=== PATIENT | female | born 1935 | race Caucasian/White ===

== ENCOUNTER 2017-04-10 12:34 | Emergency (ER) | payer OTHER ==
--- NOTE | ~2017-04-10 | CR132 ---
[facility]. [facility] A Service of [facility] RADIOLOGY TEXT RESULTS PATIENT: NEDRA MARIE LOCATION: SED : 37 UNIT #: [id number] AGE: [address]: Abelino Philippe MD SEX: F ORDER DR: [id number] [address] [address] [id number] E MR#: [id number] Acc #: [id number] NAME: NEDRA MARIE : 1935 SEX: F STUDY DATE/TIME: 04/10/2017 13:27 UNIT: SED ROOM: STUDY DESCRIPTION: CR Forearm 2 View Lt Attending Physician: Abelino Philippe M.D. Ordering Physician: Abelino Philippe M.D. Primary Care Physician: Ashley Sen M.D. MEDICAL IMAGING REPORT This report is preliminary unless electronic signature is present. EXAM Left forearm, 2 views COMPARISON Three views of the left wrist and 2 views of the left humerus on the same date. INDICATIONS 82-year-old female with left forearm pain after falling down the stairs today. FINDINGS There is a mildly comminuted, transverse impacted fracture through the distal radial metaphysis. There is no significant displacement. There appears to be volar convex angulation, which is mild. There is focal soft tissue prominence over the dorsal aspect of the forearm just below the elbow, most consistent with hematoma. No radiopaque foreign body. No evidence of dislocation. IMPRESSION Acute transverse fracture through the distal radial metaphysis with minimal volar convex angulation and impaction. There is mild comminution as well. No dislocation or significant displacement. Dictated by... Paul Amador M.D. THIS IS AN ELECTRONICALLY VERIFIED REPORT Paul Amador M.D. at 04/18/2017 9:09 PM [facility]. [facility] A Service of [facility] RADIOLOGY TEXT RESULTS PATIENT: NEDRA MARIE LOCATION: SED : 37 UNIT #: [id number] AGE: [address]: Abelino Philippe MD SEX: F ORDER DR: TD: 04/10/2017 20:45 JOB #: [id number] MEDICAL IMAGING REPORT Page 1 of 1
--- NOTE | ~2017-04-10 | CR173 ---
[facility] A Service [facility] RADIOLOGY TEXT RESULTS PATIENT: NEDRA MARIE LOCATION: SED : 37 UNIT #: [id number] AGE: [address]: Abelino Philippe MD SEX: F ORDER DR: [id number] [address] [address] [id number] E MR#: [id number] Acc #: [id number] NAME: NEDRA MARIE : 1935 SEX: F STUDY DATE/TIME: 04/10/2017 13:27 UNIT: SED ROOM: STUDY DESCRIPTION: CR Knee 3 Views Rt Attending Physician: Abelino Philippe M.D. Ordering Physician: Abelino Philippe M.D. Primary Care Physician: Ashley Sen M.D. MEDICAL IMAGING REPORT This report is preliminary unless electronic signature is present. REVISED REPORT SEE ADDENDUM EXAM Right knee series dated 04/10/2017. COMPARISON Right knee series dated 09/10/2015. HISTORY Patient fell down the stairs today with right knee pain. FINDINGS Three views of the right knee were obtained. Osteoarthritic changes are noted in the patellofemoral and tibiofemoral joints with prominent spurs and loss of joint space. No obvious joint effusion, acute displaced fracture or dislocation is seen. Subtle calcifications are suspected in the tibiofemoral joint space, suggestive of chondrocalcinosis. Dictated by... Dary Florentino M.D. CPR/psc TD: 04/10/2017 19:58 JOB #: [id number] [facility] A Service [facility] RADIOLOGY TEXT RESULTS PATIENT: NEDRA MARIE LOCATION: SED : 37 UNIT #: [id number] AGE: [address]: Abelino Philippe MD SEX: F ORDER DR: Dictated by..Sharon Florentino M.D. THIS IS AN ELECTRONICALLY VERIFIED REPORT Dary Florentino M.D. at 04/14/2017 3:32 PM CPR/psc TD: 04/11/2017 00:08 JOB #: [id number] CC: [email or web address] Please Delete MEDICAL IMAGING REPORT Page 1 of 1
--- NOTE | ~2017-04-10 | CR172 ---
[facility]. [facility] A Service of [facility] RADIOLOGY TEXT RESULTS PATIENT: NEDRA MARIE LOCATION: SED : 37 UNIT #: [id number] AGE: [address]: Abelino Philippe MD SEX: F ORDER DR: [id number] [address] [address] [id number] E MR#: [id number] Acc #: [id number] NAME: NEDRA MARIE : 1935 SEX: F STUDY DATE/TIME: 04/10/2017 13:27 UNIT: SED ROOM: STUDY DESCRIPTION: CR Knee 3 Views Lt Attending Physician: Abelino Philippe M.D. Ordering Physician: Abelino Philippe M.D. Primary Care Physician: Ashley Sen M.D. MEDICAL IMAGING REPORT This report is preliminary unless electronic signature is present. EXAM Left knee series dated 04/10/2017. COMPARISON Right knee series dated 04/10/2017. HISTORY Patient fell down the stairs today with bilateral knee pain. FINDINGS Three views of the left knee were obtained. Small spur is noted in the anterosuperior aspect of the patella. There is minimal horizontally linear calcification noted within the lateral tibiofemoral joint compartment space suspicious for mild chondrocalcinosis. No acute displaced fracture, dislocation or significant joint effusion. Dictated by... Dary Florentino M.D. THIS IS AN ELECTRONICALLY VERIFIED REPORT Dary Florentino M.D. at 04/11/2017 8:35 PM CPR/psc TD: 04/10/2017 20:02 JOB #: [id number] MEDICAL IMAGING REPORT Page 1 of 1
--- NOTE | ~2017-04-10 | CR156 ---
[facility] A Service of [facility] RADIOLOGY TEXT RESULTS PATIENT: NEDRA MARIE LOCATION: SED : 37 UNIT #: [id number] AGE: [address]: Abelino Philippe MD SEX: F ORDER DR: [id number] [address] [address] [id number] E MR#: [id number] Acc #: [id number] NAME: NEDRA MARIE : 1935 SEX: F STUDY DATE/TIME: 04/10/2017 13:27 UNIT: SED ROOM: STUDY DESCRIPTION: CR Humerus Min 2 View Lt Attending Physician: Abelino Philippe M.D. Ordering Physician: Abelino Philippe M.D. Primary Care Physician: Ashley Sen M.D. MEDICAL IMAGING REPORT This report is preliminary unless electronic signature is present. EXAM Left humerus series dated 04/10/2017. COMPARISON Left forearm series dated 04/10/2017. HISTORY Patient fell down stairs today with left arm, forearm pain. FINDINGS 2 views of the left humerus were obtained. Mild diffuse bony osteopenia is seen. No acute displaced fracture, dislocation or destructive bony lesions are noted. Glenohumeral and acromioclavicular joints are intact. Dictated by... Dary Florentino M.D. THIS IS AN ELECTRONICALLY VERIFIED REPORT Dary Florentino M.D. at 04/11/2017 8:34 PM CPR/pcl TD: 04/10/2017 17:22 JOB #: [id number] MEDICAL IMAGING REPORT Page 1 of 1
--- NOTE | ~2017-04-10 | CR142 ---
[facility] A Service of [facility] RADIOLOGY TEXT RESULTS PATIENT: NEDRA MARIE LOCATION: SED : 37 UNIT #: [id number] AGE: [address]: Abelino Philippe MD SEX: F ORDER DR: [id number] [address] [address] [id number] E MR#: [id number] Acc #: [id number] NAME: NEDRA MARIE : 1935 SEX: F STUDY DATE/TIME: 04/10/2017 13:27 UNIT: SED ROOM: STUDY DESCRIPTION: CR Hand Min 3 Views Rt Attending Physician: Abelino Philippe M.D. Ordering Physician: Abelino Philippe M.D. Primary Care Physician: Ashley Sen M.D. MEDICAL IMAGING REPORT This report is preliminary unless electronic signature is present. EXAM Right hand, 3 views COMPARISON None INDICATIONS 82-year-old female with right hand pain after falling down the stairs today. FINDINGS Evaluation of the third and fourth proximal phalanges is limited by the patient's overlapping rings. She was unable to take them off for this exam. There is mild chondrocalcinosis at the ulnocarpal articulation. There is osteophyte formation at the first interphalangeal joint, as well as at the second through fifth distal interphalangeal joints. There is somewhat of a gullwing deformity at the second and fifth distal interphalangeal joints with suggestion of periarticular erosion at the second interphalangeal joint, which appears chronic in nature. 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 There is joint space narrowing and subchondral sclerosis at the triscaphe joint. There is mild degenerative change at the first carpometacarpal joint. Bones are anatomically aligned. No evidence of acute fracture. IMPRESSION 1. No evidence of acute fracture or dislocation of the right hand. There is chondrocalcinosis at the ulnocarpal articulation, a finding which can be seen in pseudogout or simply normal aging. 2. Osteoarthritis seen at the carpus and within the distal fingers. In the fingers, there are findings suggestive of sequelae of erosive osteoarthritis. [facility]. [facility] A Service of [facility] & [facility] RADIOLOGY TEXT RESULTS PATIENT: NEDRA MARIE LOCATION: SED : 37 UNIT #: [id number] AGE: [address]: Abelino Philippe MD SEX: F ORDER DR: Dictated by... Paul Amador M.D. THIS IS AN ELECTRONICALLY VERIFIED REPORT Paul Amador M.D. at 04/18/2017 9:10 PM MAGALY/maximo TD: 04/10/2017 20:48 JOB #: [id number] MEDICAL IMAGING REPORT Page 1 of 1
--- NOTE | ~2017-04-10 | CR281 ---
[facility]. [facility] A Service of [facility] & [facility] RADIOLOGY TEXT RESULTS PATIENT: NEDRA MARIE LOCATION: SED : 37 UNIT #: [id number] AGE: [address]: Abelino Philippe MD SEX: F ORDER DR: [id number] [address] [address] [id number] E MR#: [id number] Acc #: [id number] NAME: NEDRA MARIE : 1935 SEX: F STUDY DATE/TIME: 04/10/2017 13:27 UNIT: SED ROOM: STUDY DESCRIPTION: CR Wrist Min 3 View Lt Attending Physician: Abelino Philippe M.D. Ordering Physician: Abelino Philippe M.D. Primary Care Physician: Ashley Sen M.D. MEDICAL IMAGING REPORT This report is preliminary unless electronic signature is present. EXAM Left wrist series dated 04/10/2017. COMPARISON Left humerus series dated 04/10/2017. HISTORY Patient fell down the stairs today with left wrist pain. FINDINGS Three views of the left wrist were obtained. There is a comminuted, minimally displaced fracture involving the distal radius with the fracture line extending to the distal radioulnar joint. Possible extension of the fracture to the articulating surface of the radius with the radiocarpal joint cannot be completely excluded. There is, however, no associated dislocation at either joints. Carpal bones and the metacarpals are intact. There is mild diffuse bony osteopenia. It is probably some soft tissue swelling adjacent to the fracture site in the left wrist. Dictated by... Dary Florentino M.D. THIS IS AN ELECTRONICALLY VERIFIED REPORT Dary Florentino M.D. at 04/11/2017 8:35 PM CPR/psc TD: 04/10/2017 19:59 JOB #: [id number] MEDICAL IMAGING REPORT Page 1 of 1
--- NOTE | ~2017-04-10 | CR150 ---
[facility] A Service of [facility] RADIOLOGY TEXT RESULTS PATIENT: NEDRA MARIE LOCATION: SED : 37 UNIT #: [id number] AGE: [address]: Abelino Philippe MD SEX: F ORDER DR: [id number] [address] [address] [id number] E MR#: [id number] Acc #: [id number] NAME: ENDRA MARIE : 1935 SEX: F STUDY DATE/TIME: 04/10/2017 13:27 UNIT: SED ROOM: STUDY DESCRIPTION: CR Hip Min 2 Views Lt Attending Physician: Abelino Philippe M.D. Ordering Physician: Abelino Philippe M.D. Primary Care Physician: Ashley Sen M.D. MEDICAL IMAGING REPORT This report is preliminary unless electronic signature is present. EXAM Left hip, 2 views COMPARISON None INDICATIONS 82-year-old female with left hip pain after falling down the stairs today. FINDINGS Bilateral pelvic calcifications are noted, favoring phleboliths. Degenerative facet disease seen L4-L5 and possibly on the right at L5-S1. Evaluation of the sacrum and iliac wings is limited by overlapping bowel gas and stool. The left hip is anatomically aligned. No evidence of acute fracture. No significant degenerative change. IMPRESSION 1. No acute fracture, dislocation or significant degenerative change of the left hip. 2. Degenerative changes in the lower lumbar spine. Dictated by... Paul Amador M.D. THIS IS AN ELECTRONICALLY VERIFIED REPORT Paul Amador M.D. at 04/18/2017 9:11 PM BLM/psc TD: 04/10/2017 20:59 JOB #: [id number] [facility] A Service [facility] RADIOLOGY TEXT RESULTS PATIENT: NEDRA MARIE LOCATION: SED : 37 UNIT #: [id number] AGE: [address]: Abelino Philippe MD SEX: F ORDER DR: MEDICAL IMAGING REPORT Page 1 of 1
[~2017-04-10 12:34] MED LIST: AMLODIPINE BESYL5 MG PO; ASPIRIN325 M1 PO; ATENOLOL50 MG PO; ATORVASTATIN CA10 MG PO; GLUCOPHAGE500 M1 PO; LISINOPRIL10 MG PO
== END 2017-04-10 15:43 | disposition home or self-care (01) ==
LOC: SED 12:34
DX: S59.202A Unspecified physeal fracture of lower end of radius, left arm, initial encounter for closed fracture (principal); S51.012A Laceration without foreign body of left elbow, initial encounter; I10 Essential (primary) hypertension; E11.9 Type 2 diabetes mellitus without complications; Z79.82 Long term (current) use of aspirin; Z79.84 Long term (current) use of oral hypoglycemic drugs; Z79.899 Other long term (current) drug therapy; W01.0XXA Fall on same level from slipping, tripping and stumbling without subsequent striking against object, initial encounter; Y92.22 Religious institution as the place of occurrence of the external cause
CPT/HCPCS: 12004; 73060; 73090; 73110; 73130; 73502; 73562; 90471; 90715; 99283

== ENCOUNTER → 2017-06-22 | Outpatient (CLI) | payer OTHER ==
--- NOTE | ~2017-06-22 | US37 ---
[facility]. [facility] A Service of [facility] & [facility] RADIOLOGY TEXT RESULTS PATIENT: NEDRA MARIE LOCATION: SNIV : 37 UNIT #: [id number] AGE: [address]: Ashley Sen MD SEX: F ORDER DR: [id number] [address] [address] [id number] O MR#: [id number] Acc #: [id number] NAME: NEDRA MARIE : 1935 SEX: F STUDY DATE/TIME: 06/22/2017 10:45 UNIT: SNIV ROOM: STUDY DESCRIPTION: US Carotid W/Doppler Bilateral Attending Physician: Ashley Sen M.D. Referring Physician: Ashley Sen M.D. Ordering Physician: Ashley Sen M.D. Primary Care Physician: Ashley Sen M.D. MEDICAL IMAGING REPORT This report is preliminary unless electronic signature is present. EXAM Carotid duplex scan, 06/22/2017. HISTORY Dizziness FINDINGS The right common carotid artery has a small amount of heterogeneous plaque. There is heterogeneous plaque in the right carotid bulb that extends up into the proximal internal and external carotid arteries. Peak systolic velocity in the mid right internal carotid artery is 58 cm/sec, with an end diastolic velocity of 18 cm/sec. The ICA:CCA ratio on the right is 1.4. Peak systolic velocity in the right external carotid artery is 68 cm/sec. The right vertebral artery is patent with antegrade flow. The left common carotid artery has a small amount of heterogeneous plaque. There is heterogeneous plaque in the left carotid bulb that extend up into the proximal internal and external carotid arteries. Peak systolic velocity in the distal left internal carotid artery is 79 cm/sec, with an end diastolic velocity of 24 cm/sec. The ICA:CCA ratio on the left is 1.8. Peak systolic velocity in the left external carotid artery is 49 cm/sec. The left vertebral artery is patent with antegrade flow. IMPRESSION Small amount of plaque, but no significant stenosis (less than 50%) in the internal and external carotid arteries bilaterally. Patent vertebral arteries bilaterally with antegrade flow. Dictated by... [facility] A Service of [facility] RADIOLOGY TEXT RESULTS PATIENT: NEDRA MARIE LOCATION: SNIV : 37 UNIT #: [id number] AGE: [address]: Ashley Sen MD SEX: F ORDER DR: Madhu Park M.D. THIS IS AN ELECTRONICALLY VERIFIED REPORT Madhu Park M.D. at 06/23/2017 10:57 AM Roberto TD: 06/22/2017 14:23 JOB #: [id number] MEDICAL IMAGING REPORT Page 1 of 1
== END | disposition home or self-care (01) ==
LOC: SNIV 10:18
DX: R42 Dizziness and giddiness (principal); I65.23 Occlusion and stenosis of bilateral carotid arteries
CPT/HCPCS: 93880